=== PATIENT | male | born 1950 | race Caucasian/White ===

== ENCOUNTER 2020-04-09 06:02 | Inpatient (IN) | payer MEDICARE ==
[2020-04-09] MEDS ORDERED: Vecuronium 10 MG VIAL ONE ×3 (06:33→09:48)
[2020-04-09] MEDS ORDERED: Dexmedetomidine 200 MCG/2 ML VIAL ONE (06:33)
[2020-04-09] MEDS ORDERED: Midazolam HCl 5 mg/5 ml Vial ONE (06:33)
[2020-04-09] MEDS ORDERED: Fentanyl 100 MCG/2 ML VIAL ONE (06:33)
[2020-04-09] MEDS ORDERED: Midazolam HCl 2 mg/2 ml Vial ONE (06:33)
[2020-04-09] MEDS ORDERED: Heparin 10,000 UNITS/1 ML VIAL 30,000 UNITS in Sodium Chloride 0.9% 1,000 ML FS SCH (07:00)
[2020-04-09] MEDS ORDERED: Albumin 5% 500 ML ONE (07:48)
[2020-04-09] MEDS ORDERED: PHENYLEPHRINE-NS 100 MCG/ML 10 ML SYRINGE ONE ×2 (07:48→09:48)
[2020-04-09] MEDS ORDERED: Insulin Regular 300 UNITS/3 ML VIAL ONE (08:55)
[2020-04-09] MEDS ORDERED: Papaverine 60 MG/2 ML VIAL ONE (09:48)
[2020-04-09] MEDS ORDERED: Glycopyrrolate 0.2 MG/ML 5 ML SYRINGE ONE (09:48)
[2020-04-09] MEDS ORDERED: Ketorolac Tromethamine 30 MG/ML VIAL ONE (09:48)
[2020-04-09] MEDS ORDERED: Sodium Bicarb 50 MEQ/50 ML Abboject 8.4% SYRINGE ONE (09:48)
[2020-04-09] MEDS ORDERED: Dexamethasone 20 MG/5 ML VIAL ONE (09:48)
[2020-04-09] MEDS ORDERED: Calcium Chloride 1 GM/10 ML Abboject SYRINGE ONE (09:48)
[2020-04-09] MEDS ORDERED: Ondansetron PF 4 MG/2 ML Vial ONE (09:48)
[2020-04-09] MEDS ORDERED: Lidocaine 1% PF 5 ML VIAL ONE ×2 (09:48)
[2020-04-09] MEDS ORDERED: Heparin 5,000 UNITS/ML VIAL ONE (09:48)
[2020-04-09] MEDS ORDERED: Nitroglycerin 50 MG/250 ML BOT ONE (09:48)
[2020-04-09] MEDS ORDERED: Magnesium Sulfate 1 GM/2 ML VIAL ONE (09:48)
[2020-04-09] MEDS ORDERED: Protamine Sulfate 250 MG/25 ML VIAL ONE (09:48)
[2020-04-09] MEDS ORDERED: EPHEDRINE 25 MG/5 ML SYRINGE ONE (09:48)
[2020-04-09] MEDS ORDERED: Heparin 30,000 units/30 ml VIAL ONE (09:48)
[2020-04-09] MEDS ORDERED: Aminocaproic Acid 5 GM/20 ML VIAL ONE (09:48)
[2020-04-09] MEDS ORDERED: Thrombin 5000 UNITS/5 ML VIAL ONE (09:48)
[2020-04-09] MEDS ORDERED: Lidocaine 2% PF 5 ML VIAL ONE (09:48)
[2020-04-09] MEDS ORDERED: Cardioplegic Soln 1,000 ML BAG ONE (09:48)
[2020-04-09] MEDS ORDERED: niCARdipine 25 MG in Sodium Chloride 0.9% 250 ML 250 ML IVPB PRN (11:30)
[2020-04-09] MEDS ORDERED: Hetastarch 6% 500 ML 500 ML IVPB PRN (11:30)
[2020-04-09] MEDS ORDERED: Post-Op Insulin Drip Protocol IVPB ONE (11:30)
[2020-04-09] MEDS ORDERED: Mag-Al 1200 mg/1200 mg/30 ML UDCUP PO PRN (11:30)
[2020-04-09] MEDS ORDERED: Bisacodyl 5 MG TAB PO PRN (11:30)
[2020-04-09] MEDS ORDERED: Guaifenesin DM 100-10/5 ML UDCUP PO PRN (11:30)
[2020-04-09] MEDS ORDERED: Potassium Chloride 20 MEQ/100 ML PREMIX BAG IVPB PRN (11:30)
[2020-04-09] MEDS ORDERED: Morphine 2 MG/ML VIAL SLOW IVP PRN (11:30)
[2020-04-09] MEDS ORDERED: Acetaminophen 325 MG TAB PO PRN (11:30)
[2020-04-09] MEDS ORDERED: HYDROcodone/Acetaminophen 5/325 mg Tablet PO PRN (11:30)
[2020-04-09] MEDS ORDERED: Bisacodyl 10 MG SUPP PR PRN (11:30)
[2020-04-09] MEDS ORDERED: hydrALAZINE 20 MG/ML VIAL SLOW IVP PRN (11:30)
[2020-04-09] MEDS ORDERED: Promethazine HCl 25 MG/ML VIAL IM PRN (11:30)
[2020-04-09] MEDS ORDERED: Magnesium 2 GM/50 ML 2 GM in Premix Bag 1 BAG IVPB SCH (11:30)
[2020-04-09] MEDS ORDERED: Nitroglycerin 50 MG/250 ML BOT 250 ML IVPB PRN (11:30)
[2020-04-09] MEDS ORDERED: Norepinephrine 8 MG/0.9% NS 250 ML IVPB PRN (11:30)
--- NOTE | 2020-04-09 11:52 | RAD ---
RADIOGRAPH CHEST 1 VIEW: Supine DATE: 04/09/2020 HISTORY: 69-year-old male status post open heart surgery FINDINGS: There is no large consolidation or pulmonary edema. The lateral costophrenic angles are sharp. Supine positioning makes this study insensitive for the detection of pneumothorax. There are sternotomy wires. Right subclavian central venous catheter with tip deep in right atrium. Chest tube overlies le ft chest. IMPRESSION: 1. No acute pulmonary findings. 2. Status post open heart surgery.
[2020-04-09] MEDS ORDERED: HUMULIN R 100 UNITS in Sodium Chloride 0.9% 100 ML IVPB SCH (11:57)
[2020-04-09] MEDS ORDERED: Insulin Regular 300 UNITS/3 ML VIAL SC PRN (11:57)
[2020-04-09] MEDS ORDERED: Dextrose 50% Abboject 50 ML SYRINGE SLOW IVP PRN (11:57)
[2020-04-09] MEDS ORDERED: Dextrose 5% in Water 1,000 ML IV PRN (11:57)
[2020-04-09] MEDS: Sodium Chloride 0.9% 1,000 ML IV SCH ×2 (12:04→21:10)
[2020-04-09 12:05] LABS: INR-International Normal Ratio 1.4; PTT 30.9 sec (22.9-36.1)
[2020-04-09 12:11] LABS: #Eosinphils 0.1 thou/uL (0.0-0.7); #Lymphocytes 1.1 thou/uL (1.20-3.40); #Monocytes 0.9 thou/uL (0.11-0.59); #Neutrophils 12.5 thou/uL (1.40-6.50); %Basophils 0.2 % (0.0-1.0); %Eosinophils 0.8 % (0.0-10.0); %Lymphocytes 7.3 % (21.0-51.0); %Monocytes 6.1 % (0.0-10.0); %Neutrophils 85.7 % (42.0-75.0); Hemoglobin 12.9 g/dL (14.0-18.0); Mean Corpuscular HGB CONC 33.7 g/dL (32.0-36.0); Mean Corpuscular Hemoglobin 30.6 pg (27.0-31.0); Mean Corpuscular Volume 90.7 fL (78.0-98.0); Mean Platelet Volume 6.6 fL (7.4-10.4); Platelet Count 133 thou/uL (130-400); RBC Distribution Width 11.8 % (11.5-14.5); Red Blood Cell (RBC) Count 4.23 mill/uL (4.70-6.10); White Blood Cell (WBC) Count 14.5 thou/uL (4.8-10.8)
[2020-04-09 12:16] LABS: Anion Gap 11 mmol/L (10-20); BUN (Urea Nitrogen) 14 mg/dL (8.4-25.7); Calc. Creatinine Clearance 107 mL/min (70-130); Calcium 7.9 mg/dL (7.8-10.44); Carbon Dioxide 22 mmol/L (23-31); Chloride 112 mmol/L (98-107); Estimated GFR-MDRD 81; Glucose 103 mg/dL (83-110); Sodium 141 mmol/L (136-145)
[2020-04-09] MEDS: Fentanyl 100 MCG/2 ML VIAL SLOW IVP PRN ×4 (12:20→17:22)
[2020-04-09] MEDS: DOPamine 400 MG/D5W 250 ML 250 ML IVPB PRN (14:19)
[2020-04-09] MEDS: CEFAZOLIN 2 GM in Premix Bag 1 BAG IVPB SCH ×2 (14:34→23:44)
[2020-04-09 17:19] LABS: Hemoglobin 13.1 g/dL (14.0-18.0)
[2020-04-09 17:37] LABS: Potassium 4.2 mmol/L (3.5-5.1)
[2020-04-09] MEDS: Ketorolac Tromethamine 30 MG/ML VIAL IVP SCH (19:36)
--- NOTE | 2020-04-09 20:18 | CON ---
DATE OF CONSULTATION: 04/09/2020 HISTORY OF PRESENT ILLNESS: Mr. Ag is a 69-year-old male. He had undergone coronary artery bypass grafting and was successfully weaned quickly after his operation. He had no complaints other than some low back discomfort from the bed he said when I evaluated him. He denied sternal or chest pain. PAST MEDICAL HISTORY: Otherwise noncontributory. FAMILY HISTORY: Negative for lung disease in early age. SOCIAL HISTORY: He is a nonsmoker and nondrinker. ALLERGIES: HE REPORTS SULFA ALLERGIES. REVIEW OF SYSTEMS: Ten-point is negative. PHYSICAL EXAMINATION: VITAL SIGNS: He is afebrile. Heart rate 78, blood pressure 125/55, respiratory rates in the teens. HEAD AND NECK: Unremarkable. LUNGS: Clear. Sternum is bandaged. HEART: Regular rhythm. S1, S2 are normal. ABDOMEN: Soft and nontender. EXTREMITIES: Without clubbing, cyanosis, or edema. LABORATORY DATA: Hemoglobin is 12.9, white count 14.5, platelets 133. Hemoglobin at 1659 hours was 13.1. Electrolytes are normal except for mild hyperchloremia with chloride 112, bicarbonate 22. IMPRESSION: Status post coronary artery bypass grafting. He is stable in the Critical Care Unit post extubation. We will follow while he is in the ICU. TIME SPENT: This is a 70-minute consult, 50% of the time spent on the unit coordinating care. Job ID: [id number]
[2020-04-09] MEDS ORDERED: Famotidine/PF 20 mg/2ml Vial SLOW IVP SCH (21:00)
[2020-04-09] MEDS: HYDROcodone/Acetaminophen 5/325 mg Tablet PO PRN (21:12)
[2020-04-10] MEDS: Ondansetron PF 4 MG/2 ML Vial IVP PRN ×2 (00:10→06:36)
[2020-04-10] MEDS: Ketorolac Tromethamine 30 MG/ML VIAL IVP SCH ×4 (02:08→20:27)
[2020-04-10] MEDS: DOPamine 400 MG/D5W 250 ML 250 ML IVPB PRN (04:50)
[2020-04-10 04:52] LABS: #Lymphocytes 1.1 thou/uL (1.20-3.40); #Monocytes 1.3 thou/uL (0.11-0.59); #Neutrophils 9.5 thou/uL (1.40-6.50); %Eosinophils 0.2 % (0.0-10.0); %Lymphocytes 9.6 % (21.0-51.0); %Monocytes 10.8 % (0.0-10.0); %Neutrophils 79.4 % (42.0-75.0); Hemoglobin 11.6 g/dL (14.0-18.0); Mean Corpuscular HGB CONC 34.1 g/dL (32.0-36.0); Mean Corpuscular Hemoglobin 30.8 pg (27.0-31.0); Mean Corpuscular Volume 90.4 fL (78.0-98.0); Mean Platelet Volume 6.9 fL (7.4-10.4); Platelet Count 151 thou/uL (130-400); RBC Distribution Width 11.8 % (11.5-14.5); Red Blood Cell (RBC) Count 3.75 mill/uL (4.70-6.10)
[2020-04-10 05:13] LABS: Anion Gap 12 mmol/L (10-20); BUN (Urea Nitrogen) 12 mg/dL (8.4-25.7); Calc. Creatinine Clearance 121 mL/min (70-130); Calcium 7.6 mg/dL (7.8-10.44); Carbon Dioxide 22 mmol/L (23-31); Chloride 109 mmol/L (98-107); Estimated GFR-MDRD Greater than 90; Glucose 112 mg/dL (83-110); Sodium 139 mmol/L (136-145)
[2020-04-10] MEDS: HYDROcodone/Acetaminophen 5/325 mg Tablet PO PRN ×2 (06:00→17:38)
[2020-04-10] MEDS ORDERED: Cyclobenzaprine 10 MG TAB PO PRN (06:35)
[2020-04-10 06:47] VITALS: BMI 32.1
[2020-04-10 07:02] LABS: Hemoglobin A1c 5.6 % (4.0-6.0)
[2020-04-10] MEDS ORDERED: Insulin Glargine 18 UNITS in Pre-Filled Syringe 1 EACH SC SCH (07:30)
[2020-04-10] MEDS: Sodium Chloride 0.9% 1,000 ML IV SCH (07:57)
--- NOTE | 2020-04-10 07:59 | RAD ---
EXAM: Single view of the chest HISTORY: Status post open heart surgery COMPARISON: 04/09/2020 FINDINGS: Single view of the chest shows an enlarged but stable cardiomediastinal silhouette. The pa tient is status post CABG. The central venous catheter and left chest tube are unchanged in position. No pneumothorax is seen. There is no evidence of consolidation, mass, or pleural effusion. No acute osseous abnormality. IMPRESSION: Stable exam
[2020-04-10] MEDS: CEFAZOLIN 2 GM in Premix Bag 1 BAG IVPB SCH (08:01)
--- NOTE | 2020-04-10 08:14 | OP ---
DATE OF PROCEDURE: 04/09/2020 DIAGNOSIS: Coronary artery disease. PROCEDURE PERFORMED: Coronary artery bypass graft x4; good left internal mammary artery to a very small 1.25-mm distal left anterior descending; saphenous vein, good quality, to a small 1.25-mm diagonal; saphenous vein to a 1.5 mm OM, and a saphenous vein graft to a 3-mm distal right coronary artery. TOBACCO EDUCATOR: Esau Montesinos MD DESCRIPTION OF PROCEDURE: After adequate anesthesia had been obtained, the patient was prepped and draped. Dr. Montesinos did an endovascular vein harvest to the left greater saphenous vein while I performed a median sternotomy. The left pleura was opened while harvesting the DEAN. The patient was heparinized. The mammary divided distally and passed posterior to the thymus gland through an incision in the pericardium. Aorta and right atrium were cannulated and cardiopulmonary bypass begun after good ACT levels were obtained. The aorta was crossclamped and a liter of cold [place] cardioplegic solution was given. The right coronary artery was opened distally and saphenous vein anastomosed to this nice quality vessel. Following this, the obtuse marginal was opened and a separate end-to-side anastomosis completed to this vessel. The diagonal was incised and did have some calcification in the wall and it was opened and it was rather small vessel, to which the 3rd vein anastomosis was completed. The LAD was then identified and appeared rather small and this was confirmed after opening this vessel. DEAN was anastomosed here, and following completion of this, there was good filling of the LAD and diagonal system and the layton ballooned up nicely with no bleeding. The pedicle was secured to the myocardium. The cross-clamp removed and 2 proximal anastomoses performed on the aortic root and marked with rings. Partial occluding clamp was removed and the diagonal vein graft was then anastomosed to the side of the OM vein graft about 2 cm from the aortic root. Following completion of this, the patient was weaned from cardiopulmonary bypass. Cannula was removed and protamine was given systemically. Following mediastinal and left pleural drainage placement, the sternum was reapproximated with #7 interrupted wire using vancomycin paste on the sternal edges, platelet-rich blood, and platelet-poor plasma. Subcutaneous tissue and skin were closed in layers. All grafts laid nicely in the pericardium at the conclusion of the procedure with the mammary lying close to the midline throughout its course. Job ID: [id number]
[2020-04-10] MEDS: Aspirin 325 MG TAB PO SCH (08:46)
[2020-04-10] MEDS: Polyethylene Glycol 3350 17 GM Packet PO SCH (08:46)
--- NOTE | 2020-04-10 12:52 | PRG ---
DATE OF SERVICE: 04/10/2020 SUBJECTIVE: Reddy Ag's only complaint today is his low back from staying in bed. He says it always bothers him but it is much worse since he has been confined to bed. OBJECTIVE: VITAL SIGNS: Heart rate is 80, blood pressure 100/63, respiratory rate in the teens, oximetry is 94. LUNGS: Clear. HEART: Regular rhythm. ABDOMEN: Soft. EXTREMITIES: Without asymmetry or edema. His feet are equally warm. Intake and outputs: Negative 826. Chest tube drainage is 440 out total. IMPRESSION: 1. Status post coronary artery bypass grafting, clinically stable. 2. Low back pain. We will give him Toradol and Flexeril. 3. Chest radiograph looks good today. We will continue to follow while he is in the ICU. Job ID: [id number]
[2020-04-10] MEDS ORDERED: Nitroglycerin 0.4 MG TAB (25 Tab Bottle) SL PRN (17:12)
[2020-04-10] MEDS ORDERED: Mag-Al 1200 mg/1200 mg/30 ML UDCUP PO PRN (17:12)
[2020-04-10] MEDS: Atorvastatin Calcium 20 MG TAB PO SCH (20:28)
[2020-04-11] MEDS: HYDROcodone/Acetaminophen 5/325 mg Tablet PO PRN ×2 (00:06→22:22)
[2020-04-11] MEDS: Ketorolac Tromethamine 30 MG/ML VIAL IVP SCH ×4 (03:46→20:56)
[2020-04-11 04:14] LABS: #Eosinphils 0.1 thou/uL (0.0-0.7); #Lymphocytes 1.6 thou/uL (1.20-3.40); #Monocytes 1.1 thou/uL (0.11-0.59); #Neutrophils 6.7 thou/uL (1.40-6.50); %Basophils 0.3 % (0.0-1.0); %Eosinophils 1.5 % (0.0-10.0); %Lymphocytes 17.2 % (21.0-51.0); %Monocytes 11.2 % (0.0-10.0); %Neutrophils 69.8 % (42.0-75.0); Hemoglobin 10.7 g/dL (14.0-18.0); Mean Corpuscular HGB CONC 33.8 g/dL (32.0-36.0); Mean Corpuscular Hemoglobin 30.8 pg (27.0-31.0); Mean Corpuscular Volume 91.2 fL (78.0-98.0); Mean Platelet Volume 7.1 fL (7.4-10.4); Platelet Count 121 thou/uL (130-400); Red Blood Cell (RBC) Count 3.48 mill/uL (4.70-6.10); White Blood Cell (WBC) Count 9.5 thou/uL (4.8-10.8)
[2020-04-11 04:37] LABS: Anion Gap 9 mmol/L (10-20); BUN (Urea Nitrogen) 13 mg/dL (8.4-25.7); Calc. Creatinine Clearance 120 mL/min (70-130); Calcium 7.8 mg/dL (7.8-10.44); Carbon Dioxide 24 mmol/L (23-31); Chloride 106 mmol/L (98-107); Estimated GFR-MDRD Greater than 90; Glucose 115 mg/dL (83-110); Potassium 3.7 mmol/L (3.5-5.1); Sodium 135 mmol/L (136-145)
[2020-04-11] MEDS: Polyethylene Glycol 3350 17 GM Packet PO SCH (08:46)
[2020-04-11] MEDS: Aspirin 325 MG TAB PO SCH (08:47)
[2020-04-11] MEDS: Potassium Chloride 10 MEQ TAB PO SCH (08:47)
[2020-04-11] MEDS: Metoprolol Tartrate 25 MG TAB PO SCH ×2 (08:47→20:57)
[2020-04-11] MEDS: Citalopram 20 MG TAB PO SCH (08:47)
[2020-04-11] MEDS: Furosemide 40 MG TAB PO SCH (08:47)
--- NOTE | 2020-04-11 18:54 | PRG ---
DATE OF SERVICE: 04/11/2020 SUBJECTIVE: Mr. Ag is doing well. He is walking in the [place]. He said the combination of Toradol and Flexeril yesterday made a big difference in how his back felt. OBJECTIVE: LUNGS: Unchanged. HEART: Unchanged. ABDOMEN: Unchanged. He is doing well, so we will sign off. Job ID: [id number]
[2020-04-11] MEDS: Atorvastatin Calcium 20 MG TAB PO SCH (20:57)
[2020-04-11] MEDS ORDERED: Amiodarone 150 MG, Admixture Fee 1 EACH in Dextrose 5% in Water 100 ML IVPB SCH (23:00)
[2020-04-11] MEDS: Amiodarone 450 MG, Admixture Fee 1 EACH in Dextrose 5% in Water 250 ML IVPB SCH (23:19)
[2020-04-11 23:45] LABS: Bilirubin, Direct 0.5 mg/dL (0.1-0.3); Bilirubin, Total 0.9 mg/dL (0.2-1.2); Protein, Total 5.8 g/dL (5.8-8.1)
[2020-04-11 23:46] LABS: ALT (SGPT) 15 U/L (8-55); AST (SGOT) 19 U/L (5-34); Albumin 3.6 g/dL (3.4-4.8); Alkaline Phosphatase 38 U/L (40-110)
[2020-04-12] MEDS: Ketorolac Tromethamine 30 MG/ML VIAL IVP SCH ×4 (02:27→20:44)
[2020-04-12 04:40] LABS: #Eosinphils 0.4 thou/uL (0.0-0.7); #Lymphocytes 2.2 thou/uL (1.20-3.40); #Monocytes 1.2 thou/uL (0.11-0.59); #Neutrophils 6.1 thou/uL (1.40-6.50); %Basophils 0.3 % (0.0-1.0); %Eosinophils 3.6 % (0.0-10.0); %Lymphocytes 21.9 % (21.0-51.0); %Monocytes 12.4 % (0.0-10.0); %Neutrophils 61.7 % (42.0-75.0); Hemoglobin 11.4 g/dL (14.0-18.0); Mean Corpuscular HGB CONC 33.6 g/dL (32.0-36.0); Mean Corpuscular Hemoglobin 30.6 pg (27.0-31.0); Mean Platelet Volume 6.9 fL (7.4-10.4); Platelet Count 150 thou/uL (130-400); RBC Distribution Width 11.9 % (11.5-14.5); Red Blood Cell (RBC) Count 3.72 mill/uL (4.70-6.10); White Blood Cell (WBC) Count 9.9 thou/uL (4.8-10.8)
[2020-04-12 05:08] LABS: Anion Gap 10 mmol/L (10-20); BUN (Urea Nitrogen) 14 mg/dL (8.4-25.7); Calc. Creatinine Clearance 117 mL/min (70-130); Calcium 8.1 mg/dL (7.8-10.44); Carbon Dioxide 26 mmol/L (23-31); Chloride 107 mmol/L (98-107); Estimated GFR-MDRD 89; Glucose 123 mg/dL (83-110); Potassium 3.9 mmol/L (3.5-5.1); Sodium 139 mmol/L (136-145)
[2020-04-12] MEDS: Aspirin 325 MG TAB PO SCH (08:50)
[2020-04-12] MEDS: Potassium Chloride 10 MEQ TAB PO SCH (08:50)
[2020-04-12] MEDS: Metoprolol Tartrate 25 MG TAB PO SCH ×2 (08:50→20:45)
[2020-04-12] MEDS: Furosemide 40 MG TAB PO SCH (08:50)
[2020-04-12] MEDS: Citalopram 20 MG TAB PO SCH (08:51)
[2020-04-12] MEDS: Polyethylene Glycol 3350 17 GM Packet PO SCH (08:53)
[2020-04-12] MEDS: Atorvastatin Calcium 20 MG TAB PO SCH (20:45)
[2020-04-12] MEDS: Amiodarone 450 MG, Admixture Fee 1 EACH in Dextrose 5% in Water 250 ML IVPB SCH (21:54)
[2020-04-13] MEDS: Ketorolac Tromethamine 30 MG/ML VIAL IVP SCH ×3 (02:06→16:22)
[2020-04-13 04:21] LABS: #Eosinphils 0.4 thou/uL (0.0-0.7); #Lymphocytes 1.8 thou/uL (1.20-3.40); #Neutrophils 5.9 thou/uL (1.40-6.50); %Basophils 0.3 % (0.0-1.0); %Eosinophils 4.6 % (0.0-10.0); %Lymphocytes 20.1 % (21.0-51.0); %Monocytes 10.6 % (0.0-10.0); %Neutrophils 64.4 % (42.0-75.0); Hemoglobin 11.3 g/dL (14.0-18.0); Mean Corpuscular HGB CONC 34.1 g/dL (32.0-36.0); Mean Corpuscular Hemoglobin 30.9 pg (27.0-31.0); Mean Corpuscular Volume 90.7 fL (78.0-98.0); Mean Platelet Volume 6.6 fL (7.4-10.4); Platelet Count 188 thou/uL (130-400); RBC Distribution Width 11.8 % (11.5-14.5); Red Blood Cell (RBC) Count 3.66 mill/uL (4.70-6.10); White Blood Cell (WBC) Count 9.1 thou/uL (4.8-10.8)
[2020-04-13 04:40] LABS: Anion Gap 12 mmol/L (10-20); BUN (Urea Nitrogen) 14 mg/dL (8.4-25.7); Calc. Creatinine Clearance 117 mL/min (70-130); Calcium 8.1 mg/dL (7.8-10.44); Carbon Dioxide 23 mmol/L (23-31); Chloride 106 mmol/L (98-107); Estimated GFR-MDRD 89; Glucose 121 mg/dL (83-110); Potassium 3.6 mmol/L (3.5-5.1); Sodium 137 mmol/L (136-145)
[2020-04-13] MEDS ORDERED: Amiodarone 200 MG TAB PO SCH (09:00)
[2020-04-13] MEDS: Aspirin 325 MG TAB PO SCH (09:51)
[2020-04-13] MEDS: Furosemide 40 MG TAB PO SCH (09:51)
[2020-04-13] MEDS: Potassium Chloride 10 MEQ TAB PO SCH (09:51)
[2020-04-13] MEDS: Metoprolol Tartrate 25 MG TAB PO SCH (09:52)
[2020-04-13] MEDS: Citalopram 20 MG TAB PO SCH (09:52)
[2020-04-13] MEDS: Polyethylene Glycol 3350 17 GM Packet PO SCH (09:53)
[2020-04-13 16:51] VITALS: BP 124/62; TEMP 97.2
--- NOTE | 2020-04-16 13:31 | EKG ---
Test Reason : POST CABG Blood Pressure : / mmHG Vent. Rate : 069 BPM Atrial Rate : 069 BPM P-R Int : 188 ms QRS Dur : 094 ms QT Int : 416 ms P-R-T Axes : 065 005 024 degrees QTc Int : 445 ms Normal sinus rhythm Normal ECG No previous ECGs available Confirmed by DR. Danie MUNROE MD ([id number]) on 04/16/2020 1:31:36 PM Referred By: PERRY Confirmed By:DR. Danie MUNROE MD
== END 2020-04-13 16:55 | disposition home or self-care (01) | DRG 236 ==
LOC: SDC 06:02 → SURG A 11:03 → CCU 11:25 → 2NO 04-10 19:22
PROVIDERS: ADMIT Thoracic Surgery (Cardiothoracic Vascular Surgery); ATTEND Thoracic Surgery (Cardiothoracic Vascular Surgery)
PROC: 021209W Bypass Coronary Artery, Three Arteries from Aorta with Autologous Venous Tissue, Open Approach (ICD-10-PCS; principal; 2020-04-09)
PROC: 02100Z9 Bypass Coronary Artery, One Artery from Left Internal Mammary, Open Approach (ICD-10-PCS; 2020-04-09)
PROC: 06BQ0ZZ Excision of Left Saphenous Vein, Open Approach (ICD-10-PCS; 2020-04-09)
PROC: 5A1221Z Performance of Cardiac Output, Continuous (ICD-10-PCS; 2020-04-09)
PROC: 3E033XZ Introduction of Vasopressor into Peripheral Vein, Percutaneous Approach (ICD-10-PCS; 2020-04-09)
DX: I25.10 Atherosclerotic heart disease of native coronary artery without angina pectoris (principal); M54.5 Low back pain; E78.5 Hyperlipidemia, unspecified; G47.30 Sleep apnea, unspecified; I10 Essential (primary) hypertension; Z88.2 Allergy status to sulfonamides; Z79.899 Other long term (current) drug therapy; Z79.82 Long term (current) use of aspirin
CPT/HCPCS: 36415; 36416; 36430; 71045; 80048; 80076; 83036; 83735; 84443; 85025; 85610; 85730; 86850; 86900; 86901; 93005; 93010; 93798; J0282; J0690; J1100; J1265; J1642; J1644; J1815; J1885; J2250; J2405; J2440; J2720; J3010; J3370; J3475; J3480; J7050; J7070; P9045; S0017; S0028

== ENCOUNTER 2022-01-18 12:37 | Day surgery (SDC) | payer MEDICARE | END 2022-01-18 13:50 | disposition home or self-care (01) | LOC: SDC 12:37 | PROVIDERS: ATTEND Internal Medicine Gastroenterology | DX: R10.9 Unspecified abdominal pain (principal); I10 Essential (primary) hypertension; E78.5 Hyperlipidemia, unspecified; K21.9 Gastro-esophageal reflux disease without esophagitis; G47.30 Sleep apnea, unspecified; E03.9 Hypothyroidism, unspecified; Z53.09 Procedure and treatment not carried out because of other contraindication; Z86.010 Personal history of colon polyps; Z88.1 Allergy status to other antibiotic agents; Z88.2 Allergy status to sulfonamides ==